=== PATIENT | female | born 1955 | race Caucasian/White ===

== ENCOUNTER → 2019-08-21 | Day surgery (SDC) | payer OTHER ==
[2019-08-18 11:25] LABS: BASOPHILS % 0.6 % (0.0-1.0); EOSINOPHILS % 0.6 % (0.0-6.0); HEMATOCRIT 40.3 % (34.2-44.1); HEMOGLOBIN 13.8 g/dL (12.0-16.0); LYMPHOCYTES # (AUTO) 1.8 (1.0-3.2); MEAN CORPUSCULAR HEMOGLOBIN 34.6 pg (28-32); MEAN CORPUSCULAR HGB CONC 34.2 g/dL (31-35); MONOCYTES # (AUTO) 0.6 (0.2-0.8); MONOCYTES % 12.3 % (4.4-11.3); NEUTROPHILS # (AUTO) 2.7 (2.1-6.9); NEUTROPHILS % 52.1 % (38.7-80.0); PLATELET COUNT 216 x10e3/uL (140-360); RED BLOOD COUNT 3.99 x10e6/uL (3.6-5.1); RED CELL DISTRIBUTION WIDTH 13.1 % (11.7-14.4)
[2019-08-18 11:35] LABS: INR 0.84
[2019-08-18 11:36] LABS: PARTIAL THROMBOPLASTIN TIME 26.5 seconds (23.8-35.5)
[2019-08-18 11:43] LABS: ANION GAP 16.1 mmol/L (8-16); BLOOD UREA NITROGEN 8 mg/dL (7-26); BUN/CREATININE RATIO 12 (6-25); CARBON DIOXIDE 24 mmol/L (22-29); CHLORIDE 101 mmol/L (98-107); CREATININE, SERUM 0.67 mg/dL (0.57-1.11); EST GLOMERULAR FILTRATION RATE > 60 ML/MIN (60-); GLUCOSE 93 mg/dL (74-118); POTASSIUM 4.1 mmol/L (3.5-5.1); SODIUM 137 mmol/L (136-145)
--- NOTE | 2019-08-18 11:54 | Diagnostic Imaging Report ---
EXAMINATION: CHEST 2 VIEWS INDICATION: Pre-operative COMPARISON: None FINDINGS: LINES/TUBES:None LUNGS:The lungs are well-inflated. No focal consolidation or pulmonary edema. PLEURA:No pleural effusion or pneumothorax. MEDIASTINUM:The cardiomediastinal silhouette appears normal in size and shape. BONES/SOFT TISSUES:No acute osseous injury. ABDOMEN:No free air under the diaphragm. IMPRESSION: No focal pneumonia or pulmonary edema. Signed by: Monique Orellana MD on 08/18/2019 11:52 AM
[~2019-08-21] VITALS: Ht 154.9 cm; Wt 52.6 kg
[2019-08-21] VITALS (12 sets, daily range): BP systolic 99–133; BP diastolic 55–85
[~2019-08-21] MED LIST: DIPHENHYDRAMINE HCL INJ 50 MG/ML VIAL ONE; FENTANYL CITRATE/PF 100MCG/2 ML INJ ONE; HEPARIN SOD (PORCINE) 1000 UNIT/ML 30ML ONE; HEPARIN SOD/SOD CHLORIDE 2,000 ML ONE; IOPAMIDOL 370 MG/ML 200 ML INFUS..BTL INJ ONE; LIDOCAINE HCL 2% LOCAL 20 ML VIAL ONE; LISINOPRIL10 MG PO; MIDAZOLAM HCL 2 MG/2 ML VIAL ONE; MORPHINE SULFATE INJ 4 MG/ML INJ 1ML ONE; NITROGLYCERIN/D5W 200 MCG/ML 0 ML ONE; PROAIR HFA INH8.5 GM INH; SODIUM CHLORIDE 0.9% 1000ML 1,000 ML ONE; TYLENOL WITH C1 EACH PO
--- NOTE | 2019-08-21 08:06 | Pre Op History & Physical ---
ANTICIPATED DATE OF ADMISSION: August 20, 2019. REASON FOR ADMISSION: Ms. Lyles is a complex 64-year-old woman who is admitted at this time for further evaluation of chest discomfort. HISTORY OF PRESENT ILLNESS: The patient has had intermittent chest discomfort as far back as at least February 2019 when she was hospitalized at [facility], at which time she though was seen by a clean in places operator, she refused to have stress test. PAST MEDICAL HISTORY: Significant for hypertension. She reportedly had a hysterectomy in 1975 for ovarian cancer. She has had previous lumbar laminectomy at [facility] in 1999. She had a resection of a kidney cyst about 1999, but cannot remember the location or surgeon. She had appendectomy at age 21 and arm surgery in 2007. CURRENT MEDICATIONS: At home include Tylenol No. 3, albuterol inhaler, lisinopril 10 mg daily, and nitroglycerin sublingual p.r.n. OTHER HOSPITALIZATIONS: As mentioned before, February 2019 she was at [facility] with chest pain and back pain. She was hospitalized for pneumonia in September 2017. ALLERGIES: SHE REPORTS BEING ALLERGIC TO ASPIRIN AND PENICILLIN. PERSONAL AND SOCIAL HISTORY: The patient continues to smoke cigarettes and occasionally drinks alcohol. FAMILY HISTORY: Father at 65 with cancer. The patient's mother after gallbladder surgery. She has one brother and one sister, they both of cancer. REVIEW OF SYSTEMS: Include musculoskeletal pain. PHYSICAL EXAMINATION: GENERAL: At this time shows a thin white woman who looks significantly older than her age. VITAL SIGNS: She is 5 feet 2 inches tall, weighing 120 pounds. Blood pressure 126/74. HEAD, EYES, EARS, NOSE, AND THROAT: Unremarkable. NECK: No jugular venous distention. No bruits. THORAX: Heart sounds S1 and S2 are equal. No murmurs. LUNGS: Clear. ABDOMEN: Shows healed right lateral renal incision. Lumbar spine incision healed. Lower midline abdominal incision healed. Normal bowel sounds. Nontender. EXTREMITIES: No cyanosis, clubbing, or edema. LABORATORY DATA: EKG shows sinus rhythm with anterior T-wave inversions. ASSESSMENT: 1. Recurrent chest pain in a patient with abnormal EKG and strong family history of heart disease. 2. Musculoskeletal pains. 3. Hypertension. 4. History of weight loss. 5. History of ovarian cancer. PLAN: We will perform left heart catheterization to further assess significance of any underlying coronary artery disease. Further management will be based on the results of the study. MD LEATHA Monk/VALENTIN /[id number] cc: Lamonte Matthews MD
--- OUTSIDE RECORDS SUMMARY | 2019-08-21 08:26 | XMS REPORT ---
Author [facility] Address Unknown Phone Unavailable Care Team Providers Care Tailing Hand Name Role Phone Brandon BUCHANAN Unavailable Unavailable Payers Payer Name Policy Type Policy Number Effective Date Expiration Date Problems This patient has no known problems. Allergies, Adverse Reactions, Alerts Allergy Name Allergy Type Status Severity Reaction(s) Onset Date Inactive Date Treating Clinician Comments Penicillins DA Active 2019-03-05 00:00:00 aspirin DA Active 2019-03-05 00:00:00 MUSHROOM DA Active WI 2019-03-05 00:00:00 mushroom FA Active WI 2019-03-05 00:00:00 Penicillins DA Active U 2010-06-20 00:00:00 aspirin DA Active U 2010-06-20 00:00:00 MUSHROOM DA Active U 2009-05-05 00:00:00 Medications This patient has no known medications. Encounters Start Date/Time End Date/Time Encounter Type Admission Type Attending Clinicians Care Facility Care Department Encounter ID 2019-08-11 04:33:00 2019-08-11 04:33:00 Outpatient E [facility] [id number] Results Test Description Test Time Test Comments Text Results Atomic Results Result Comments CHEST 2 VIEWS 2019-08-18 11:51:00 [facility] [address] [place] [address] Patient Name: NATALIYA RAYA MR #: [id number] : 1955 Age/Sex: 64/F Req #: [id number] [facility] Physician: Ordered by: JEANNINE BUCHANAN MD Report #: [id number] Location: [facility] Room/Bed: Procedure: [id number] DX/CHEST 2 VIEWS Exam Date: 08/18/19 Exam Time: 1130 REPORT STATUS: Signed EXAMINATION: CHEST 2 VIEWS INDICATION: Pre-operative COMPARISON: None FINDINGS: LINES/TUBES:None LUNGS:The lungs are well-inflated. No focal consolidation or pulmonary edema. PLEURA:No pleural effusion or pneumothorax. MEDIASTINUM:The cardiomediastinal silhouette appears normal in size and shape. BONES/SOFT TISSUES:No acute osseous injury. ABDOMEN:No free air under the diaphragm. IMPRESSION: No focal pneumonia or pulmonary edema. Signed by: Renny Dolan MD on 08/18/2019 11:52 AM Dictated By: RENNY DOLAN MD 1152 Transcribed By: [facility] on 08/18/19 1152 COPY TO: JEANNINE BUCHANAN MD TROPONIN-I 2019-03-07 07:13:00 TROPONIN-I (test code=TROPI) <0.015 ng/mL 0-0.045 - MRI L-SPINE W/O [id number] 19:25:00 FAX: Collin Foley [phone] [place]: [address]: ADM Name: NATALIYA BATEMAN [facility] : [birth year] Age/S: 63/F [address] Unit #: [id number] Loc: [address] [address] Phys: Collin Foley MD Acct: [id number] Dis Date: Status: ADM IN PHONE #: [phone] Exam Date: 03/06/20191911 FAX #: [phone] Reason: CARLOS LOWER EXTREMITY NUMBNESS EXAMS: CPT CODE: [id number] MRI L-SPINE W/O CONT 92670 REASON FOR EXAM: CARLOS LOWER EXTREMITY NUMBNESS Exam Order Date: 03/06/2019 3:04 PM Janae flores M.D.: Collin Merritt MD Comparison: Pr ocedure: - MRI L-SPINE W/O CONT FINDINGS: Sagittal and axial imag es of the lumbar spine were obtained in in T1, T2, and proton density with fat saturation. No IV gadolinium was given. The sagittal im ages show within normal alignment of the lumbar spine. No evidence of disk itis or osteomyelitis. The axial images show no evidence of cord compression. The cord is unremarkable without evidence of intramed ullary mass. IMPRESSION: 1. Minimal broad-based disc b ulges at L1-2 and L2-3 with minimal central canal stenosis and minimal n arrowing of the neural foramen bilaterally 2. Severe broad-base d disc bulge at L3-4 with moderate to severe central canal stenosis and moderate to severe narrowing of bilateral neural foramen more pronounced on the right 3. Severe broad-based disc bulge at L4-5 with a, no disti nct tear. Mild central canal stenosis. Mild narrowing of bilateral david ral foramen Electronically Signed by Kimberly Davis on 019 at 1925 Reported and signed by: Michael Davis M.D. CC: Collin Foley MD Technologist: Last Crenshaw RT(R),(MR),(CT) Trnscrd Date/Time/By: 019 (1924) : By: Kalyan Orig Print D/T: S: 03/06/2019 (1927) PAGE 1 Signed Report - MRI BRAIN W/O [id number] 12:43:00 FAX: Daniel Zarate MD [place]: [address] St: ADM FAX: Collin Foley [phone] Name: NATALIYA RAYA [facility] : 1955 Age/S: 63/F [address] [facility] Unit #: [id number] Loc: V.[address] [address] Phys: Collin Foley MD Acct: [id number] Dis Date: Status: ADM IN PHONE #: [phone] Exam Date: 03/06/2019 1211 FAX #: [phone] Reason: LEFT SIDE NUMBNESS AND WEAKNESS. H/O CVA EXAMS: CPT CODE: [id number] MRI BRAIN W/O CONTRAST [id number] REASON FOR EXAM: LEFT SIDE NUMBNESS AND WEAKNESS. H/O CVA Exam Order Date: 03/06/2019 10:23 AM Attending M.D.: Collin Merritt MD Procedure: - MRI BRAIN W/O CONTRAST Comparison: Noncontrast CT brain March 05, 2019 FINDINGS: A xial, sagittal, and coronal images of the head were obtained using T1, T2 weighted, inversion recovery, diffusion weighted, and gradient echo sequen karina. No intravenous gadolinium was given. The sagittal imag es show normal pituitary, cerebellum, and brain stem. No evidence of supra sellar mass. The axial T2, inversion recovery, and gradient echo i mages show no evidence of intra or extra axial mass. The ventricles, ciste rns, and sulci are unremarkable. No evidence of hemorrhage. The cerebellar pontine angle area is within normal limits. There is no carlton dence of mass noted. The axial T1 images show no evidence of mass. No diffusion restricting lesions to suggest acute infarction. The re are multiple hyperintense lesions in the periventricular white matter on the inversion recovery images which may be from remote infarctions and/or microvascular ischemic changes. The coronal images show normal opt ic chiasm. IMPRESSION: No acute intracranial process. Specifical ly no hemorrhage, acute infarction, or mass effect. Periventricu lar white matter disease may be from chronic microvascular ischemic palmer ges. at 1243 * * Reported and signed by: David Arias MD PAGE 1 Signed Report (CONTINUED) FAX: Daniel Kwan MD [place]: St: ADM FAX: Collin Covarrubias [phone] Name: NATALIYA RAYA [facility] : 1955 Age/S: 63/F [address] [facility] Unit #: [id number] Loc: V.[address] [place] [address] Phys: Collin Foley MD Acct: [id number] Dis Date: Status: ADM IN PHONE #: [phone] Exam Date: 03/06/2019 1211 FAX #: [phone] Reason: LEFT SIDE NUMBNESS AND WEAKNESS. H/O CVA EXAMS: CPT CODE: [id number] MRI BRAIN W/O CONTRAST 85600 < Continued> CC: Daniel Zarate MD; Collin Foley MD Technologist: Last Lyons RT(R),(MR),(CT) Trnscrd Date/Time/By: 03/06/2019 (3187) : By: [email or web address] Orig Print D/T: S: 03/06/2019 (5792) PAGE 2 Signed Report TROPONIN-I 2019-03-05 16:44:00* Test Item Value Reference Range Comments TROPONIN-I (test code=TROPI) <0.015 ng/mL 0-0.045 COMMENTS TO MOTORBOAT MECHANIC HELPER: COLLECT 3 HOURS AFTER PREVIOUS SAMPLELIPID PROFILE (CORONARY RISK)2019-03-05 14:25:00* Test Item Value Reference Range Comments TRIGLYCERIDES (test code=TRIG) 84 mg/dL 20-150 CHOLESTEROL (test code=CHOL) 231 mg/dL 0-200 CHOLESTEROL/HDL RATIO (test code=CHOLHDL) 1.0 RATIO 0-4.9 RISK ASSOCIATED WITH CHOL/HDL RATIOS: Risk Male Female1/2 AVERAGE 3.43 3.27AVERAGE 4.97 4.442X AVERAGE 9.55 7.053X AVERAGE 23.39 11.04 REFERENCE VALUE IS RELATED TO RISK LEVELS ASRECOMMENDED BY THE JESSICA. HEART, LUNG, AND BLOOD INST. HDL CHOLESTEROL (test code=HDL) 138 mg/dL 40-60 LIPOPROTEIN LDL (test code=LDL) 77 mg/dL 100-129 Reference Interval: mg/dL mmol/L Optimal <100 <2.6Near/above optimal 100-129 2.6- 3.3Borderline High 130-159 3.4-4.1High 160-189 4.1-4.9Very High >=190 >=4.9=========This LDL result is a direct measurement.========= HEPATIC FUNCTION [id number] 14:25:00* Test Item Value Reference Range Comments TOTAL PROTEIN (test code=PROT) 7.3 gram/dL 6.4-8.2 ALBUMIN (test code=ALB) 4.3 g/dL 3.4-5.0 GLOBULIN (test code=GLOB) 3.0 gram/dL 2.7-4.2 ALBUMIN/GLOBULIN RATIO (test code=A/G) 1.4 0.75-1.50 BILIRUBIN TOTAL (test code=BILT) 0.20 mg/dL 0.0-1.0 BILIRUBIN DIRECT (test code=BILD) 0.10 mg/dL 0.0-0.20 SGOT/AST (test code=AST) 26 IUnit/L 15-37 SGPT/ALT (test code=ALT) 29 IUnit/L 12-78 ALKALINE PHOSPHATASE TOTAL (test code=ALKP) 59 IUnit/L 45-117 Note change in reference range due to change in reagent. VITAMIN [id number] 14:25:00* Test Item Value Reference Range Comments VITAMIN B12 (test code=VITB12) 388 pg/mL 193-986 FOLIC [id number] 14:25:00* Test Item Value Reference Range Comments FOLIC ACID (test code=FOL) 23.2 ng/mL 3.10-17.50 [id number] 14:15:00* Test Item Value Reference Range Comments ALCOHOL (test code=ALC) < 3 mg/dL 0.0-3.0 INTERPRETIVE DATA NOTE: POSITIVE SCREENING RESULTS SHOULD BE CONSIDERED PRESUMPTIVE.WHEN COLLECTED FOR MEDICAL PURPOSES ONLY. SPECIMEN WILL NOTBE COLLECTED BY CHAIN OF CUSTODY.IF A CONFIRMATION OF POSITIVE RESULTS IS DESIRED, ACONFIRMATION TEST MUST BE REQUESTED BY THE PHYSICIAN AT ANADDITIONAL CHARGE TO THE PATIENT. [id number] 13:48:00* Test Item Value Reference Range Comments TROPONIN-I (test code=TROPI) <0.015 ng/mL 0-0.045 COMMENTS TO MOTORBOAT MECHANIC HELPER: COLLECT 3 HOURS AFTER PREVIOUS [id number] 13:27:00* Test Item Value Reference Range Comments GLYCOSYLATED HEMOGLOBIN (HA1C) (test code=GLYHGB) 4.9 % HbA1 4.8-6.0 ESTIMATED AVERAGE GLUCOSE (test code=EAG) 94 MG/DL DRUGS OF ABUSE SCREEN [id number] 13:16:00* Test Item Value Reference Range Comments UA PH DIPSTICK (test code=CECY) 5.0 5.0-8.0 URN COCAINE (test code=COCAURN) NEGATIVE <300 ng/mL URN CANNABINOIDS (test code=CANNABURN) POSITIVE <50 ng/mL This test provides only a preliminary test result. A morespecific alternate chemical method must be used in order toobtain a confirmed analytical result. Gas chromatography/mass spectrometry (GC/MS) is thepreferred confirmatory method. Other chemical confirmationmethods are available. Clinical consideration and professional judgment should be applied to any drug of abusetest result, particularly when preliminary positive resultsare used.Unconfirmed screening results must not be used fornon-medical purposes (e.g., employment testing, legaltesting). URN AMPHETAMINE (test code=AMPHETURN) NEGATIVE <1000 ng/mL URN BARBITURATE (test code=BARBITURN) NEGATIVE <200 ng/mL URN BENZODIAZEPINE (test code=BENZOURN) NEGATIVE <200 ng/mL URN OPIATES (test code=OPIATURN) NEGATIVE <300 ng/mL URN PHENCYCLIDINE (PCP) (test code=PHENCURN) NEGATIVE <25 ng/mL URN METHADONE (test code=METHAURN) NEGATIVE <300 ng/mL DRUGS OF ABUSE SCREEN [id number] 07:43:00* Test Item Value Reference Range Comments UA PH DIPSTICK (test code=CECY) 5.0-8.0 URN COCAINE (test code=COCAURN) NEGATIVE <300 ng/mL URN CANNABINOIDS (test code=CANNABURN) POSITIVE <50 ng/mL This test provides only a preliminary test result. A morespecific alternate chemical method must be used in order toobtain a confirmed analytical result. Gas chromatography/mass spectrometry (GC/MS) is thepreferred confirmatory method. Other chemical confirmationmethods are available. Clinical consideration and professional judgment should be applied to any drug of abusetest result, particularly when preliminary positive resultsare used.Unconfirmed screening results must not be used fornon-medical purposes (e.g., employment testing, legaltesting). URN AMPHETAMINE (test code=AMPHETURN) NEGATIVE <1000 ng/mL URN BARBITURATE (test code=BARBITURN) NEGATIVE <200 ng/mL URN BENZODIAZEPINE (test code=BENZOURN) NEGATIVE <200 ng/mL URN OPIATES (test code=OPIATURN) NEGATIVE <300 ng/mL URN PHENCYCLIDINE (PCP) (test code=PHENCURN) NEGATIVE <25 ng/mL URN METHADONE (test code=METHAURN) NEGATIVE <300 ng/mL BASIC METABOLIC [id number] 03:01:00* Test Item Value Reference Range Comments SODIUM (test code=NA) 134 mmol/L 136-145 POTASSIUM (test code=K) 3.7 mmol/L 3.5-5.1 CHLORIDE (test code=CL) 99.0 mmol/L 98-107 CARBON DIOXIDE (test code=CO2) 20.0 mmol/L 21-32 ANION GAP (test code=GAP) 18.7 10-20 GLUCOSE (test code=GLU) 95 mg/dL 74-106 BLOOD UREA NITROGEN (test code=BUN) 10 mg/dL 7-18 GLOMERULAR FILTRATION RATE (test code=GFR) > 60 mL/min >=60 Estimated GFR by using Modified MDRD formula.Chronic kidney disease is defined as either kidney damageor GFR <60 mL/min/1.73 m2 for >3 months. CREATININE (test code=CREAT) 0.60 mg/dL 0.55-1.02 Note change in reference range due to change in reagent. BUN/CREATININE RATIO (test code=BUN/CREA) 15.8 10-20 CALCIUM (test code=CA) 9.1 mg/dL 8.5-10.1 [id number] 03:01:00* Test Item Value Reference Range Comments TROPONIN-I (test code=TROPI) <0.015 ng/mL 0-0.045 BASIC METABOLIC [id number] 02:38:00* Test Item Value Reference Range Comments SODIUM (test code=NA) 134 mmol/L 136-145 POTASSIUM (test code=K) 3.7 mmol/L 3.5-5.1 CHLORIDE (test code=CL) 99.0 mmol/L 98-107 CARBON DIOXIDE (test code=CO2) mmol/L 21-32 ANION GAP (test code=GAP) 10-20 GLUCOSE (test code=GLU) mg/dL 74-106 BLOOD UREA NITROGEN (test code=BUN) mg/dL 7-18 GLOMERULAR FILTRATION RATE (test code=GFR) mL/min >=60 CREATININE (test code=CREAT) mg/dL 0.55-1.02 BUN/CREATININE RATIO (test code=BUN/CREA) 10-20 CALCIUM (test code=CA) mg/dL 8.5-10.1 [id number] 02:38:00* Test Item Value Reference Range Comments TROPONIN-I (test code=TROPI) ng/mL 0-0.045 - CT HEAD/BRAIN W/O [id number] 02:22:00 Name: NATALIYA RAYA [facility] : 1955 Age/S: 63 / F [address] Unit #: [id number] Loc: [address] [address] Phys: Marianna Kearns DO Acct: [id number] Dis Date: Status: ADM IN PHONE #: [phone] Exam Date: 03/05/2019221 FAX #: [phone] Reason: headache EXAMS: CPT CODE: [id number] CT HEAD/BRAIN W/O CONT [id number] Dictation location: H37. CT HEAD WITHOUT CONTRAST. HISTORY: headache COMPARISON: No comparison is available. TECHNIQUE: Axial CT images of the head were obtained with coronal and/or sagittal reformatted views. Automated exposure control, iterative reconstruction technique, and/or adjustment of mA and/or kV according to patient's size was utilized for radiation dose reduction. IV CONTRAST: None. FINDINGS: No intracranial abnormalities such as hemorrhage, mass, mass effect, hydrocephalus, midline shift, extra-axial fluid collection or secondary signs of an acute infarct are noted. The calvarium and skull base are intact. Probable small mucous retention cysts in both maxillary sinuses. IMPRESSION: No evidence of acute intracranial abnormality. E lectronically Signed by Laura Felix M.D. on 03/05/2019 at 0222 Reported and signed by: Laura Felix M.D. CC: Marianna Kearns DO Technologist:SHAE REZA CTDI: DLP: Trnscb Date/Time: 03/05/2019 (221) [email or web address] Orig Print D/T: S: 03/05/2019 (0828) PAGE 1 Signed Report CBC W/O [id number] 02:20:00* Test Item Value Reference Range Comments WHITE BLOOD CELL (test code=WBC) 8.8 K/mm3 4.5-12.5 RED BLOOD CELL (test code=RBC) 3.58 mill/mm3 3.7-5.2 HEMOGLOBIN (test code=HGB) 12.3 gram/dL 11.5-15.5 HEMATOCRIT (test code=HCT) 36.3 % 36.0-46.0 MEAN CELL VOLUME (test code=MCV) 101.4 fL 80-98 MEAN CELL HGB (test code=MCH) 34.4 picogram 27.0-33.0 MEAN CELL HGB CONCETRATION (test code=MCHC) 33.9 gram/dL 33.0-36.0 RED CELL DISTRIBUTION WIDTH (test code=RDW) 13.1 % 11.6-16.2 PLATELET COUNT (test code=PLT) 227 K/mm3 150-450 MEAN PLATELET VOLUME (test code=MPV) 8.7 fL 6.7-11.0 CBC W/O [id number] 02:08:00* Test Item Value Reference Range Comments WHITE BLOOD CELL (test code=WBC) K/mm3 4.5-12.5 RED BLOOD CELL (test code=RBC) mill/mm3 3.7-5.2 HEMOGLOBIN (test code=HGB) 12.3 gram/dL 11.5-15.5 HEMATOCRIT (test code=HCT) 36.3 % 36.0-46.0 MEAN CELL VOLUME (test code=MCV) fL 80-98 MEAN CELL HGB (test code=MCH) picogram 27.0-33.0 MEAN CELL HGB CONCETRATION (test code=MCHC) gram/dL 33.0-36.0 RED CELL DISTRIBUTION WIDTH (test code=RDW) % 11.6-16.2 PLATELET COUNT (test code=PLT) K/mm3 150-450 MEAN PLATELET VOLUME (test code=MPV) fL 6.7-11.0 - XR CHEST 1 [id number] 01:55:00 FAX: Marianna Kearns: [address]: PRE Name: NATALIYA BATEMAN [facility] : [birth year] Age/S: 63/F [address] [place] Unit #: [id number] Loc: [place] [address] [address] Phys: Marianna Kearns DO Acct: [id number] Dis Date: Status: PRE ER PHONE #: [phone] Exam Date: 03/05/2019 015 FAX #: [phone] Reason: CHEST PAIN EXAMS: CPT CODE: [id number] XR CHEST 1 V 95668 DICTATION LOCATION: 8 HISTORY: Female, 63 years of age with CHEST PAIN EXAM: CHEST X-RAY, ONE VIEW COMPARISON: 06/20/2010 COMMENT: Frontal view of the chest is provided. No focal infiltrate, consolidation, mass lesion, or effusion is seen. Cardiac silhouette is within normal pemberton its. No acute bony abnormalities. IMPRESSION: No acute disease. at 0155 Reported and signed by: Nazia Red MD CC: Marianna Kearns DO Technologist: Astrid Byers Trnscrd Date/Time/By: 0 03/05/2019 (0155) : By: Reilly Orig Print D/T: S: 03/05/2019 (0207) PAGE 1 Signed Report
--- NOTE | 2019-08-21 08:45 | NUR ---
0845pt in Rm #9 Identiferx2, Allergy arm band placed Prepped for procedure. Alert oriented and appropriate, PERRLA, respirations even and unlabored to room air. Pulses x4 extremities equal and faint. Pedal pulses PT/DP present and marked.Pt admits has chronic lumbar and mid thorasic pain On new Pain med pain and muscle relaxer bu doesnt have doses Took last dose at 9pm 08/21/2019. Skin warm and dry integrity appears intact in general. IV started left hand #22 by Deven Cody and labeled .Started and presents healthy w/o s/s of infiltration or complaint. Abdomen soft and supple. pt offered toileting, denies need to urinate or defecate. Personal affects with patient. Family at bedside. Pt and family verbalizes understanding of POC. Pre-Op Meds benadryl 50mg IVP per Holden RN. Bed low and locked, side rails up x2 and call light at side. ds/rn
--- NOTE | 2019-08-21 09:05 | NUR ---
0905 pt very anxious and somewhat agitated states didnt take pain med this am. Glo Carvalho startd #22 left hand. Holden Clement gave 50 ivp Benedryl.Refused to allow decrease stimulation in room Remains sitting up family at bedside Brother [phone]. hand off to Glo Carvalho ds/rn
--- NOTE | 2019-08-21 10:33 | NUR ---
1033am RECEIVING NOTE CONTRACT SPECIALIST RECOVERY DEPT............................................................... Bedside report received from GENA Hatch. Identifierx2. Alert oriented and appropriate, PERRLA, respirations even and unlabored to room air. Pulses x4 extremities equal and strong. Pedal pulses PT/DP X4 and marked. Cap fill brisk < 3 sec. Rt Manual site to groin w/o gross issues pain, pallor, pressure or dysrhythmia. Tegaderm site dry and intact. Skin warm and dry integrity appears D/I. IV 20g to left hand at 100cchr. Presents healthy w/o s/s of infiltration or complaint. Abdomen soft and supple. pt offered toileting w/o success, denies need to urinate or defecate. No personal affects with patient. Family brother and significant other. Pt and family verbalizes understanding of POC. Currently with of pain low back. States pain level 29/10.Medicated Morphine 4mg ivp for intense back pain,on arrival to label printer recovery bay #9. Pt aware to keep rt leg straight and head down. ds/rn
--- NOTE | 2019-08-21 10:35 | NUR ---
1035 Medicated 4mg Morphine sulfate ivp left hand .Describes pain recover 8/10 at 15minutes post. Family remains at bedsdie call light at bedside. bed in low position no other gross issues Vs stable Monitor NSR. No Fix LHC.downtime till 2pm dc time ds/rn
--- NOTE | 2019-08-21 11:45 | NUR ---
pt states pain greater 10 low lower back Reposition for comfort. Pain med not due till 1230 Discussed alternative adjunction to possible pain relief at home and to f/o with Dr Matthews office if pain mgt needs reviewed for home care.woody/rn
--- NOTE | 2019-08-21 12:35 | NUR ---
1235 Nick RN at bedside medicated ivp ,Morphine sulfate 4mg.for 05/01 vs stable .Tolerated po intake.Voided qs awaiting dc at 2pm woody/alec
--- NOTE | 2019-08-21 13:35 | NUR ---
1335 States back pain 03/01 be ready for dc at 2pm No gross issues pain,pallor,pressure or dysrhythmia. ds/rn
--- NOTE | 2019-08-21 13:45 | NUR ---
1345 Dressed and ready for dc.
--- NOTE | 2019-08-21 14:01 | NUR ---
1400pm SUPPLY AIDE RECOVERY DISCHARGE NURSING NOTE Pt meets DC criteria. Rt Groin assessed for s/s of complication and presence of hematoma. Skin warm, dry, no discolor, and pulses present. IV removed from left hand, Distal tip appears intact. VS WNL. Pt denies pain, sob, or need at this time. Family at brother Gabo. Review of discharge paperwork and follow up instructions. verbalized understanding. Pt to wheelchair and transported to front of hospital. Transferred to private vehicle under own strength w/o incident with DC paperwork in hand. - woody/alec
--- NOTE | 2019-08-21 19:20 | Operative Report ---
DATE OF PROCEDURE: 08/21/2019 SURGEON: Sami Macias MD INDICATIONS: Chest pain with abnormal EKG, smoker with family history of coronary artery disease. PROCEDURE IN DETAIL: The patient was brought to the custodial laborer in a fasting and partially sedated state, premedicated with Benadryl and 2 mg of IV morphine and 1 mg Versed. The right groin was prepped with scrub and 2% xylocaine, and a 4-Niuean sheath was placed in the right common femoral artery. The cardiac cath was performed with a 4-Niuean pigtail and 4-Niuean right and left Miriam catheters. Inspection of films demonstrates normal left ventricular function. EF estimated 65%. The right coronary artery is a dominant vessel. It is large, widely patent with no evidence of plaquing. The left main, LAD, ramus, circumflex, and OMs are all widely patent and unremarkable without any evidence of plaquing. The catheters were removed. Pressure held and she was sent to the room in stable condition. FINAL IMPRESSIONS: 1. Normal coronary arteries. 2. Normal left ventricular function, EF 65%. There was no blood loss. No complication. She will be discharged to home in 4 hours. MD LEATHA Monk/MODL /[id number] cc: Lamonte Matthews MD
--- NOTE | 2019-08-22 10:53 | Discharge Summary ---
Ms. Lyles is a complex 64-year-old woman with multiple medical problems and chronic pain. She is brought to the hospital for cardiac catheterization to further assess chest pain. HOSPITAL COURSE: The patient had a cardiac catheterization performed without difficulty. This showed normal coronary arteries and normal left ventricular function. The patient was monitored for 4 hours and discharged to home. Instructed to have bed rest overnight. No lifting tomorrow. She will follow up with Dr. Matthews on a regular basis for evaluation of other sources of pain. FINAL IMPRESSION: 1. Normal coronary arteries. 2. Normal left ventricular function. MD LEATHA Monk/VALENTIN /[id number] cc: Lamonte Matthews MD
== END | disposition home or self-care (01) ==
LOC: CATH LAB 08:24
PROVIDERS: ATTEND Internal Medicine Cardiovascular Disease
DX: R07.89 Other chest pain (principal); R94.31 Abnormal electrocardiogram [ECG] [EKG]; I10 Essential (primary) hypertension; G89.29 Other chronic pain; M79.18 Myalgia, other site; F17.210 Nicotine dependence, cigarettes, uncomplicated; Z88.6 Allergy status to analgesic agent; Z88.0 Allergy status to penicillin; Z01.812 Encounter for preprocedural laboratory examination; Z01.818 Encounter for other preprocedural examination; Z82.49 Family history of ischemic heart disease and other diseases of the circulatory system
CPT/HCPCS: 36415; 71046; 80048; 85025; 85610; 85730; 86850; 86900; 93458; C1766; J1200; J2001; J2250; J2270; J7030; Q9967; 99152; J1644; J3010

== ENCOUNTER 2020-08-04 10:38 | Inpatient (IN) | payer OTHER ==
[~2020-08-04] VITALS: Ht 154.9 cm; Wt 50.5 kg
[~2020-08-04 10:38] MED LIST changes: -DIPHENHYDRAMINE HCL INJ 50 MG/ML VIAL ONE; -FENTANYL CITRATE/PF 100MCG/2 ML INJ ONE; -HEPARIN SOD (PORCINE) 1000 UNIT/ML 30ML ONE; -HEPARIN SOD/SOD CHLORIDE 2,000 ML ONE; -IOPAMIDOL 370 MG/ML 200 ML INFUS..BTL INJ ONE; -LIDOCAINE HCL 2% LOCAL 20 ML VIAL ONE; -MIDAZOLAM HCL 2 MG/2 ML VIAL ONE; -MORPHINE SULFATE INJ 4 MG/ML INJ 1ML ONE; -NITROGLYCERIN/D5W 200 MCG/ML 0 ML ONE; -SODIUM CHLORIDE 0.9% 1000ML 1,000 ML ONE
[2020-08-04] MEDS ORDERED: SODIUM CHLORIDE 0.9% 1000ML 1,000 ML IV STA (11:02)
[2020-08-04] MEDS ORDERED: ONDANSETRON HCL INJ 2MG/ML 2ML 2 MG/ML VIAL IV STA (11:02)
[2020-08-04] MEDS ORDERED: METHYLPREDNISOLONE SOD SUCC 125 MG/2ML VIAL IV STA (11:02)
[2020-08-04] MEDS ORDERED: HYDRALAZINE HCL 20 MG/ML VIAL IV STA (11:02)
[2020-08-04] MEDS ORDERED: ALBUTEROL/IPRATROPIUM 3 ML NEB NEB ONE (11:15)
[2020-08-04 11:37] LABS: BASOPHILS % 0.6 % (0.0-1.0); EOSINOPHILS % 0.6 % (0.0-6.0); HEMATOCRIT 41.2 % (34.2-44.1); HEMOGLOBIN 13.7 g/dL (12.0-16.0); LYMPHOCYTES # (AUTO) 2.1 (1.0-3.2); LYMPHOCYTES % 29.2 % (18.0-39.1); MEAN CORPUSCULAR HEMOGLOBIN 33.3 pg (28-32); MEAN CORPUSCULAR HGB CONC 33.3 g/dL (31-35); MONOCYTES # (AUTO) 0.8 (0.2-0.8); MONOCYTES % 11.2 % (4.4-11.3); NEUTROPHILS # (AUTO) 4.1 (2.1-6.9); NEUTROPHILS % 57.1 % (38.7-80.0); PLATELET COUNT 423 x10e3/uL (140-360); RED BLOOD COUNT 4.12 x10e6/uL (3.6-5.1); RED CELL DISTRIBUTION WIDTH 11.9 % (11.7-14.4)
[2020-08-04] MEDS ORDERED: MORPHINE SULFATE INJ 2 MG/ML SYR IV STA (11:38)
[2020-08-04 11:46] LABS: INR 0.9; PROTHROMBIN TIME 12.7 seconds (11.9-14.5)
[2020-08-04 11:47] LABS: PARTIAL THROMBOPLASTIN TIME 28.7 seconds (23.8-35.5)
[2020-08-04 11:55] LABS: ALANINE AMINOTRANSFERASE 13 IU/L (0-55); ALBUMIN 3.8 g/dL (3.5-5.0); ALKALINE PHOSPHATASE 76 IU/L (40-150); BLOOD UREA NITROGEN 14 mg/dL (7-26); BUN/CREATININE RATIO 21 (6-25); CALCIUM 9.6 mg/dL (8.4-10.2); CARBON DIOXIDE 28 mmol/L (22-29); CHLORIDE 103 mmol/L (98-107); CREATINE KINASE 24 IU/L (29-168); CREATININE, SERUM 0.68 mg/dL (0.57-1.11); EST GLOMERULAR FILTRATION RATE > 60 ML/MIN (60-); GLUCOSE 104 mg/dL (74-118); MAGNESIUM 1.9 MG/DL (1.3-2.1); SODIUM 140 mmol/L (136-145)
[2020-08-04 14:00] VITALS: BP 173/83
[2020-08-04] MEDS: ALBUTEROL SULF 0.083% NEB SOLN 3 ML NEB NEB SCH ×4 (14:10→23:00)
[2020-08-04] MEDS: IPRATROPIUM BROMIDE 0.02% 2.5 ML NEB NEB SCH ×2 (14:10→20:10)
[2020-08-04 14:23] VITALS: BP 173/83
[2020-08-04] MEDS: CEFTRIAXONE SOD 1 GM/NS 50 ML 50 ML IV SCH (14:59)
[2020-08-04] MEDS ORDERED: CELEBREX100 MG PO (15:05)
[2020-08-04] MEDS ORDERED: TIZANIDINE HCL4 MG PO (15:10)
[2020-08-04] MEDS ORDERED: LISINOPRIL2.5 MG PO (15:10)
[2020-08-04] MEDS ORDERED: PAROXETINE HCL20 MG PO (15:10)
[2020-08-04] MEDS: SODIUM CHLORIDE 0.9% 1000ML 1,000 ML IV SCH (15:31)
[2020-08-04] MEDS: HYDROCODONE/APAP 5MG-325MG TAB PO PRN ×2 (15:32→19:57)
[2020-08-04] MEDS: AZITHROMYCIN 500MG/NS 250 ML 250 ML IV SCH (16:42)
[2020-08-04] MEDS ORDERED: HYDRALAZINE HCL 20 MG/ML VIAL IV PRN (17:45)
[2020-08-04] MEDS: ASCORBIC ACID 500 MG TAB PO SCH (19:34)
[2020-08-04] MEDS: CHOLECALCIFEROL 1,000 UNIT TAB PO SCH (19:56)
[2020-08-04] MEDS: METHYLPREDNISOLONE SOD SUCC 125 MG/2ML VIAL IV SCH ×2 (19:56→20:05)
[2020-08-04 20:00] VITALS: BP 151/85
[2020-08-04] MEDS: LISINOPRIL 10 MG TAB PO SCH (20:00)
[2020-08-04] MEDS: PAROXETINE HCL 20 MG TAB PO SCH (20:23)
[2020-08-04] MEDS ORDERED: ONDANSETRON HCL INJ 2MG/ML 2ML 2 MG/ML VIAL IV PRN (20:30)
[2020-08-04 20:36] VITALS: BP 173/83
[2020-08-04] MEDS: TIZANIDINE HCL 4 MG TAB PO SCH (21:18)
[2020-08-04] MEDS: BENZONATATE 100 MG CAP PO PRN (21:36)
[2020-08-05] VITALS (8 sets, daily range): BP systolic 114–161; BP diastolic 71–99
[2020-08-05] MEDS: HYDROCODONE/APAP 5MG-325MG TAB PO PRN ×3 (00:29→08:52)
[2020-08-05] MEDS: IPRATROPIUM BROMIDE 0.02% 2.5 ML NEB NEB SCH ×2 (01:00→06:45)
[2020-08-05] MEDS: ALBUTEROL SULF 0.083% NEB SOLN 3 ML NEB NEB SCH ×2 (02:40→06:45)
[2020-08-05] MEDS: BENZONATATE 100 MG CAP PO PRN (03:11)
[2020-08-05] MEDS: METHYLPREDNISOLONE SOD SUCC 125 MG/2ML VIAL IV SCH ×3 (04:00→20:18)
[2020-08-05] MEDS: SODIUM CHLORIDE 0.9% 1000ML 1,000 ML IV SCH (04:46)
[2020-08-05 05:49] LABS: BASOPHILS % 0.1 % (0.0-1.0); HEMOGLOBIN 12.2 g/dL (12.0-16.0); LYMPHOCYTES # (AUTO) 1.2 (1.0-3.2); LYMPHOCYTES % 10.2 % (18.0-39.1); MEAN CORPUSCULAR HEMOGLOBIN 33.2 pg (28-32); MEAN CORPUSCULAR VOLUME 100.8 fL (81-99); MONOCYTES # (AUTO) 0.3 (0.2-0.8); MONOCYTES % 2.9 % (4.4-11.3); NEUTROPHILS # (AUTO) 9.9 (2.1-6.9); NEUTROPHILS % 85.8 % (38.7-80.0); PLATELET COUNT 371 x10e3/uL (140-360); RED BLOOD COUNT 3.67 x10e6/uL (3.6-5.1); RED CELL DISTRIBUTION WIDTH 11.8 % (11.7-14.4)
[2020-08-05] MEDS: TIZANIDINE HCL 4 MG TAB PO SCH ×3 (05:51→22:12)
[2020-08-05 06:21] LABS: ALANINE AMINOTRANSFERASE 12 IU/L (0-55); ALBUMIN 3.7 g/dL (3.5-5.0); ALKALINE PHOSPHATASE 80 IU/L (40-150); ANION GAP 15.2 mmol/L (8-16); BLOOD UREA NITROGEN 10 mg/dL (7-26); BUN/CREATININE RATIO 15 (6-25); CALCIUM 9.2 mg/dL (8.4-10.2); CARBON DIOXIDE 23 mmol/L (22-29); CHLORIDE 100 mmol/L (98-107); CREATININE, SERUM 0.68 mg/dL (0.57-1.11); EST GLOMERULAR FILTRATION RATE > 60 ML/MIN (60-); GLUCOSE 143 mg/dL (74-118); POTASSIUM 4.2 mmol/L (3.5-5.1); SODIUM 134 mmol/L (136-145)
[2020-08-05 07:09] LABS: CREATINE KINASE MB 1.4 ng/mL (0-5.0)
[2020-08-05] MEDS ORDERED: MAGNESIUM HYDROXIDE 30 ML UDC PO PRN (09:00)
[2020-08-05] MEDS ORDERED: BISACODYL 5 MG TAB EC PO PRN (09:00)
[2020-08-05] MEDS: CHOLECALCIFEROL 1,000 UNIT TAB PO SCH (09:10)
[2020-08-05] MEDS: ASCORBIC ACID 500 MG TAB PO SCH ×2 (09:11→17:11)
[2020-08-05] MEDS: LISINOPRIL 10 MG TAB PO SCH (09:11)
[2020-08-05] MEDS: CELECOXIB 100 MG CAP PO SCH ×2 (09:12→17:11)
[2020-08-05] MEDS: SENNOSIDES 8.6 MG TAB PO SCH ×2 (10:00→17:11)
[2020-08-05] MEDS ORDERED: ALBUTEROL/IPRATROPIUM 3 ML NEB NEB PRN (10:15)
[2020-08-05] MEDS: ONDANSETRON HCL INJ 2MG/ML 2ML 2 MG/ML VIAL IV PRN (11:30)
[2020-08-05] MEDS: GUAIFENESIN/CODEINE 10 ML CUP PO PRN (11:31)
[2020-08-05] MEDS: ALBUTEROL/IPRATROPIUM 3 ML NEB NEB SCH ×2 (11:34→21:54)
[2020-08-05] MEDS: BENZONATATE 100 MG CAP PO SCH ×4 (11:59→23:41)
[2020-08-05] MEDS: METOCLOPRAMIDE HCL 10 MG TAB PO SCH ×3 (11:59→20:23)
[2020-08-05] MEDS ORDERED: PANTOPRAZOLE 40 MG 10ML VIAL IV SCH (12:00)
[2020-08-05] MEDS: PANTOPRAZOLE SOD 40 MG TABEC PO SCH (13:03)
[2020-08-05] MEDS: CEFTRIAXONE SOD 1 GM/NS 50 ML 50 ML IV SCH (13:03)
[2020-08-05] MEDS: HYDROCODONE/APAP 10MG-325MG TAB PO PRN ×3 (13:07→21:30)
[2020-08-05] MEDS: AZITHROMYCIN 500MG/NS 250 ML 250 ML IV SCH (14:00)
[2020-08-05] MEDS: ENOXAPARIN SOD INJ 40 MG/0.4 ML SYR SC SCH (17:11)
[2020-08-05] MEDS: PAROXETINE HCL 20 MG TAB PO SCH (20:19)
[2020-08-06] VITALS (11 sets, daily range): BP systolic 126–170; BP diastolic 70–98
[2020-08-06] MEDS: GUAIFENESIN/CODEINE 10 ML CUP PO PRN ×5 (01:22→22:03)
[2020-08-06] MEDS: HYDROCODONE/APAP 10MG-325MG TAB PO PRN ×6 (01:30→22:03)
[2020-08-06] MEDS: METHYLPREDNISOLONE SOD SUCC 125 MG/2ML VIAL IV SCH ×3 (04:00→21:17)
[2020-08-06 05:19] LABS: BASOPHILS % 0.1 % (0.0-1.0); HEMATOCRIT 35.5 % (34.2-44.1); HEMOGLOBIN 11.7 g/dL (12.0-16.0); LYMPHOCYTES # (AUTO) 1.1 (1.0-3.2); LYMPHOCYTES % 8.5 % (18.0-39.1); MEAN CORPUSCULAR HEMOGLOBIN 33.3 pg (28-32); MEAN CORPUSCULAR VOLUME 101.1 fL (81-99); MONOCYTES # (AUTO) 0.7 (0.2-0.8); MONOCYTES % 5.5 % (4.4-11.3); NEUTROPHILS # (AUTO) 11.3 (2.1-6.9); PLATELET COUNT 348 x10e3/uL (140-360); RED BLOOD COUNT 3.51 x10e6/uL (3.6-5.1); RED CELL DISTRIBUTION WIDTH 11.9 % (11.7-14.4)
[2020-08-06 06:24] LABS: ANION GAP 14.4 mmol/L (8-16); BLOOD UREA NITROGEN 12 mg/dL (7-26); BUN/CREATININE RATIO 18 (6-25); CALCIUM 9.4 mg/dL (8.4-10.2); CARBON DIOXIDE 24 mmol/L (22-29); CHLORIDE 104 mmol/L (98-107); CREATININE, SERUM 0.67 mg/dL (0.57-1.11); EST GLOMERULAR FILTRATION RATE > 60 ML/MIN (60-); GLUCOSE 120 mg/dL (74-118); POTASSIUM 4.4 mmol/L (3.5-5.1); SODIUM 138 mmol/L (136-145)
[2020-08-06] MEDS: BENZONATATE 100 MG CAP PO SCH ×4 (06:41→22:02)
[2020-08-06] MEDS: TIZANIDINE HCL 4 MG TAB PO SCH ×3 (06:41→21:17)
[2020-08-06] MEDS: ALBUTEROL/IPRATROPIUM 3 ML NEB NEB SCH ×3 (07:51→19:00)
[2020-08-06] MEDS: ASCORBIC ACID 500 MG TAB PO SCH ×2 (08:33→17:27)
[2020-08-06] MEDS: METOCLOPRAMIDE HCL 10 MG TAB PO SCH ×4 (08:33→21:17)
[2020-08-06] MEDS: SENNOSIDES 8.6 MG TAB PO SCH ×2 (08:33→17:27)
[2020-08-06] MEDS: CELECOXIB 100 MG CAP PO SCH ×2 (08:33→17:27)
[2020-08-06] MEDS: PANTOPRAZOLE SOD 40 MG TABEC PO SCH (08:33)
[2020-08-06] MEDS: CHOLECALCIFEROL 1,000 UNIT TAB PO SCH (08:33)
[2020-08-06] MEDS: ONDANSETRON HCL INJ 2MG/ML 2ML 2 MG/ML VIAL IV PRN ×2 (08:41→12:20)
[2020-08-06] MEDS ORDERED: ALPRAZOLAM 0.25 MG TAB PO PRN (09:00)
[2020-08-06] MEDS: CEFTRIAXONE SOD 1 GM/NS 50 ML 50 ML IV SCH (12:15)
[2020-08-06] MEDS: AZITHROMYCIN 500MG/NS 250 ML 250 ML IV SCH (13:55)
[2020-08-06] MEDS: ENOXAPARIN SOD INJ 40 MG/0.4 ML SYR SC SCH (17:27)
[2020-08-06] MEDS ORDERED: BISACODYL 10 MG SUPP PR ONE ×2 (17:40→17:55)
[2020-08-06] MEDS: PAROXETINE HCL 20 MG TAB PO SCH (21:17)
[2020-08-07] VITALS (8 sets, daily range): BP systolic 135–163; BP diastolic 71–100
[2020-08-07] MEDS: ALBUTEROL/IPRATROPIUM 3 ML NEB NEB SCH ×4 (01:00→20:00)
[2020-08-07] MEDS: HYDROCODONE/APAP 10MG-325MG TAB PO PRN ×3 (03:45→17:10)
[2020-08-07] MEDS: METHYLPREDNISOLONE SOD SUCC 125 MG/2ML VIAL IV SCH ×3 (03:45→20:17)
[2020-08-07] MEDS: BENZONATATE 100 MG CAP PO SCH ×3 (05:30→17:06)
[2020-08-07] MEDS: TIZANIDINE HCL 4 MG TAB PO SCH ×3 (05:32→20:17)
[2020-08-07 06:08] LABS: BASOPHILS % 0.1 % (0.0-1.0); HEMATOCRIT 35.3 % (34.2-44.1); HEMOGLOBIN 11.7 g/dL (12.0-16.0); LYMPHOCYTES # (AUTO) 0.7 (1.0-3.2); LYMPHOCYTES % 7.1 % (18.0-39.1); MEAN CORPUSCULAR HEMOGLOBIN 33.1 pg (28-32); MEAN CORPUSCULAR HGB CONC 33.1 g/dL (31-35); MONOCYTES # (AUTO) 0.3 (0.2-0.8); MONOCYTES % 2.7 % (4.4-11.3); NEUTROPHILS # (AUTO) 9.3 (2.1-6.9); NEUTROPHILS % 89.4 % (38.7-80.0); PLATELET COUNT 308 x10e3/uL (140-360); RED BLOOD COUNT 3.53 x10e6/uL (3.6-5.1)
[2020-08-07 06:29] LABS: ANION GAP 12.6 mmol/L (8-16); BLOOD UREA NITROGEN 15 mg/dL (7-26); BUN/CREATININE RATIO 22 (6-25); CALCIUM 8.9 mg/dL (8.4-10.2); CARBON DIOXIDE 26 mmol/L (22-29); CHLORIDE 101 mmol/L (98-107); CREATININE, SERUM 0.69 mg/dL (0.57-1.11); EST GLOMERULAR FILTRATION RATE > 60 ML/MIN (60-); GLUCOSE 132 mg/dL (74-118); POTASSIUM 4.6 mmol/L (3.5-5.1); SODIUM 135 mmol/L (136-145)
[2020-08-07] MEDS: ASCORBIC ACID 500 MG TAB PO SCH ×2 (09:01→17:05)
[2020-08-07] MEDS: SENNOSIDES 8.6 MG TAB PO SCH ×2 (09:01→17:05)
[2020-08-07] MEDS: METOCLOPRAMIDE HCL 10 MG TAB PO SCH ×4 (09:01→20:17)
[2020-08-07] MEDS: CHOLECALCIFEROL 1,000 UNIT TAB PO SCH (09:01)
[2020-08-07] MEDS: CELECOXIB 100 MG CAP PO SCH ×2 (09:01→17:06)
[2020-08-07] MEDS: PANTOPRAZOLE SOD 40 MG TABEC PO SCH (09:01)
[2020-08-07] MEDS: GUAIFENESIN/CODEINE 10 ML CUP PO PRN ×2 (11:55→20:17)
[2020-08-07] MEDS: CEFTRIAXONE SOD 1 GM/NS 50 ML 50 ML IV SCH (13:09)
[2020-08-07] MEDS: AZITHROMYCIN 500MG/NS 250 ML 250 ML IV SCH (14:00)
[2020-08-07] MEDS: ENOXAPARIN SOD INJ 40 MG/0.4 ML SYR SC SCH (17:05)
[2020-08-07] MEDS: PAROXETINE HCL 20 MG TAB PO SCH (20:17)
[2020-08-08] MEDS: BENZONATATE 100 MG CAP PO SCH ×2 (00:35→05:11)
[2020-08-08] MEDS: GUAIFENESIN/CODEINE 10 ML CUP PO PRN ×2 (02:13→10:25)
[2020-08-08] MEDS: METHYLPREDNISOLONE SOD SUCC 125 MG/2ML VIAL IV SCH (04:05)
[2020-08-08] MEDS: HYDROCODONE/APAP 10MG-325MG TAB PO PRN ×2 (04:05→09:15)
[2020-08-08] MEDS: TIZANIDINE HCL 4 MG TAB PO SCH (05:11)
[2020-08-08 05:26] VITALS: BP 184/93
[2020-08-08] MEDS: ALBUTEROL/IPRATROPIUM 3 ML NEB NEB SCH (07:00)
[2020-08-08 09:14] VITALS: BP 131/81
[2020-08-08] MEDS: PANTOPRAZOLE SOD 40 MG TABEC PO SCH (09:15)
[2020-08-08] MEDS: ASCORBIC ACID 500 MG TAB PO SCH (09:16)
[2020-08-08] MEDS: SENNOSIDES 8.6 MG TAB PO SCH (09:16)
[2020-08-08] MEDS: CHOLECALCIFEROL 1,000 UNIT TAB PO SCH (09:16)
[2020-08-08] MEDS: METOCLOPRAMIDE HCL 10 MG TAB PO SCH (09:16)
[2020-08-08] MEDS: CELECOXIB 100 MG CAP PO SCH (09:16)
[2020-08-08 11:28] VITALS: BP 179/87
[2020-08-08 11:44] VITALS: BP 179/87
== END 2020-08-08 12:28 | disposition home or self-care (01) | DRG 190 ==
LOC: ER 11:00 → ERHOLD 13:24 → MED/SURG2 14:00
PROVIDERS: ADMIT Internal Medicine; ATTEND Internal Medicine
DX: J44.0 Chronic obstructive pulmonary disease with (acute) lower respiratory infection (principal); J69.0 Pneumonitis due to inhalation of food and vomit; J15.9 Unspecified bacterial pneumonia; E44.0 Moderate protein-calorie malnutrition; J44.1 Chronic obstructive pulmonary disease with (acute) exacerbation; R09.02 Hypoxemia; Z20.822 Contact with and (suspected) exposure to COVID-19; F41.0 Panic disorder [episodic paroxysmal anxiety]; K59.00 Constipation, unspecified; I10 Essential (primary) hypertension; R63.4 Abnormal weight loss; Z68.21 Body mass index [BMI] 21.0-21.9, adult
CPT/HCPCS: 36415; 71250; 74230; 80048; 80053; 82550; 82553; 83735; 83880; 84484; 85025; 85610; 85730; 87040; 93005; 94640; 99284; J0360; J0456; J0696; J1650; J2270; J2405; J2930; J7030; U0002

== ENCOUNTER 2021-12-15 15:27 | Observation (INO) | payer OTHER ==
[~2021-12-15] VITALS: Ht 154.9 cm; Wt 50.3 kg
[~2021-12-15 15:27] MED LIST changes: +CELEBREX100 MG PO; +LISINOPRIL2.5 MG PO; +PAROXETINE HCL20 MG PO; +TIZANIDINE HCL4 MG PO
[2021-12-15 16:34] LABS: BASOPHILS % 0.5 % (0.0-1.0); EOSINOPHILS # (AUTO) 0.1 (0.0-0.4); HEMATOCRIT 36.6 % (34.2-44.1); HEMOGLOBIN 12.1 g/dL (12.0-16.0); LYMPHOCYTES # (AUTO) 2.3 (1.0-3.2); LYMPHOCYTES % 36.4 % (18.0-39.1); MEAN CORPUSCULAR HEMOGLOBIN 31.8 pg (28-32); MEAN CORPUSCULAR HGB CONC 33.1 g/dL (31-35); MEAN CORPUSCULAR VOLUME 96.3 fL (81-99); MONOCYTES # (AUTO) 0.5 (0.2-0.8); MONOCYTES % 8.5 % (4.4-11.3); NEUTROPHILS # (AUTO) 3.3 (2.1-6.9); NEUTROPHILS % 53.4 % (38.7-80.0); PLATELET COUNT 224 x10e3/uL (140-360); RED CELL DISTRIBUTION WIDTH 12.4 % (11.7-14.4)
[2021-12-15] MEDS ORDERED: METHYLPREDNISOLONE SOD SUCC 125 MG/2ML VIAL IV ONE (17:00)
[2021-12-15 17:04] LABS: ALBUMIN 4.3 g/dL (3.5-5.0); ALBUMIN/GLOBULIN RATIO 1.7 (0.8-2.0); ANION GAP 13.8 mmol/L (8-16); CREATININE, SERUM 0.8 mg/dL (0.57-1.11); POTASSIUM 3.8 mmol/L (3.5-5.1)
[2021-12-15 20:00] VITALS: BP 97/81
[2021-12-15] MEDS: ALBUTEROL/IPRATROPIUM 3 ML NEB NEB SCH (20:17)
[2021-12-15] MEDS ORDERED: BENZONATATE100 MG PO (20:27)
[2021-12-15] MEDS ORDERED: NEURONTIN300 MG PO (20:27)
[2021-12-15] MEDS ORDERED: TRELEGY ELLIPT1 EACH INH (20:39)
[2021-12-15 21:00] VITALS: BP 97/81
[2021-12-15 22:05] VITALS: BP 97/81
[2021-12-15] MEDS ORDERED: BENZONATATE 100 MG CAP PO PRN (22:15)
[2021-12-16] MEDS: ALBUTEROL/IPRATROPIUM 3 ML NEB NEB SCH ×2 (00:30→06:28)
[2021-12-16 00:41] VITALS: BP 103/69
[2021-12-16] MEDS: METHYLPREDNISOLONE SOD SUCC 40 MG/ML VIAL 1ML IV SCH ×2 (01:54→08:27)
[2021-12-16 05:46] VITALS: BP 112/68
[2021-12-16] MEDS ORDERED: TIZANIDINE HCL 4 MG TAB PO SCH (06:00)
[2021-12-16 07:51] VITALS: BP 112/62
[2021-12-16 07:55] VITALS: BP 112/62
[2021-12-16] MEDS ORDERED: CEFTRIAXONE 500 MG VIAL IV SCH (09:00)
[2021-12-16] MEDS ORDERED: PAROXETINE HCL 20 MG TAB PO SCH (09:00)
[2021-12-16] MEDS ORDERED: LISINOPRIL 10 MG TAB PO SCH (09:00)
[2021-12-16] MEDS ORDERED: GABAPENTIN 300 MG CAP PO SCH (09:00)
[2021-12-16] MEDS ORDERED: GUAIFENESIN 600 MG TAB PO SCH (11:00)
[2021-12-16] MEDS ORDERED: DOXYCYCLINE HYCLATE TABLET 100 MG TAB PO ONE (11:00)
[2021-12-16 11:16] VITALS: BP 120/75
[2021-12-16] MEDS ORDERED: TRIAMCINOLONE ACET 40 MG/ML VIAL IM ONE (11:30)
== END 2021-12-16 12:46 | disposition home or self-care (01) ==
LOC: ER 15:55 → ERHOLD 16:46 → MED/SURG2 19:41
PROVIDERS: ADMIT Internal Medicine; ATTEND Internal Medicine
DX: J44.1 Chronic obstructive pulmonary disease with (acute) exacerbation (principal); J44.0 Chronic obstructive pulmonary disease with (acute) lower respiratory infection; J18.9 Pneumonia, unspecified organism; Z88.0 Allergy status to penicillin; Z88.8 Allergy status to other drugs, medicaments and biological substances; Z20.822 Contact with and (suspected) exposure to COVID-19
CPT/HCPCS: 36415; 71046; 80053; 83880; 85025; 87449; 94640; 94799 ×2; 99284; G0378 ×2; J0696; J2920; J2930; J3301; U0002

== ENCOUNTER 2025-04-03 13:12 | Emergency (ER) | payer MEDICARE, OTHER ==
[~2025-04-03] VITALS: Ht 154.9 cm; Wt 64.0 kg
[~2025-04-03 13:12] MED LIST changes: +BENZONATATE100 MG PO; +NEURONTIN300 MG PO; +TRELEGY ELLIPT1 EACH INH
[2025-04-03 13:31] VITALS: PULSE 82; RESP 20; TEMP 98.9
[2025-04-03] MEDS: DEXAMETHASONE SOD PHOS 10 MG/1 ML VIAL IM ONE (14:28)
[2025-04-03] MEDS: HYDROCODONE/APAP 7.5MG-325MG 1 EA TAB PO ONE (14:28)
[2025-04-03] MEDS: ORPHENADRINE CITRATE 30 MG/ML VIAL IM ONE (14:29)
[2025-04-03] MEDS ORDERED: MEDROL4 M2 PO (15:39)
[2025-04-03] MEDS ORDERED: HYDROCODON-ACE1 EA11 PO (15:39)
[2025-04-03 16:03] VITALS: BP 123/66; PULSE 63; RESP 18; TEMP 98.8; O2SAT 100
== END 2025-04-03 16:06 | disposition home or self-care (01) ==
LOC: ER 13:37
DX: M54.42 Lumbago with sciatica, left side (principal); I10 Essential (primary) hypertension; J44.9 Chronic obstructive pulmonary disease, unspecified; G40.909 Epilepsy, unspecified, not intractable, without status epilepticus; Z87.442 Personal history of urinary calculi
CPT/HCPCS: 99282; J1100; J2360